=== PATIENT | female | born 1945 | race Caucasian/White ===

== ENCOUNTER 2021-11-23 10:33 | Outpatient (CLI) | payer OTHER ==
[2021-11-23 12:11] LABS: #Eosinphils 0.2 10x3/uL (0.0-0.5); #Monocytes 0.3 10x3/uL (0.0-1.1); #Neutrophils 2.9 10x3/uL (1.5-8.4); %Basophils 0.7 % (0.0-2.0); %Eosinophils 3.6 % (0.0-6.0); %Lymphocytes 42.9 % (18.0-47.0); %Monocytes 4.6 % (0.0-10.0); Hemoglobin 13.3 g/dL (12.0-15.5); Mean Corpuscular HGB CONC 32.9 g/dL (32.0-36.0); Mean Corpuscular Hemoglobin 29.1 pg (27.0-33.0); Mean Corpuscular Volume 88.4 fl (81.6-98.3); Mean Platelet Volume 10.5 fl (7.4-10.4); Platelet Count 335 10x3/uL (150-450); Red Blood Cell (RBC) Count 4.57 10x6/uL (3.90-5.03); White Blood Cell (WBC) Count 6.1 10x3/uL (3.5-10.5)
[2021-11-23 12:28] LABS: INR-International Normal Ratio 0.9; Prothrombin Time 10.2 sec (9.5-12.1)
[2021-11-23 12:36] LABS: Anion Gap 16 mmol/L (10-20); BUN (Urea Nitrogen) 15 mg/dL (9.8-20.1); Calc. Creatinine Clearance 0 mL/min (70-130); Calcium 9.9 mg/dL (7.8-10.44); Carbon Dioxide 27 mmol/L (23-31); Chloride 103 mmol/L (98-107); Glucose 88 mg/dL (83-110); Potassium 3.9 mmol/L (3.5-5.1); Sodium 142 mmol/L (136-145)
== END 2021-11-23 10:34 | disposition home or self-care (01) ==
LOC: LABBT 10:33
PROVIDERS: ATTEND Orthopaedic Surgery
DX: Z01.818 Encounter for other preprocedural examination (principal); M17.12 Unilateral primary osteoarthritis, left knee; Z20.822 Contact with and (suspected) exposure to COVID-19
CPT/HCPCS: 80048; 85025; 85610; 87081; 93005; U0003; U0005; 93010

== ENCOUNTER 2021-11-28 06:54 | Inpatient (IN) | payer MEDICARE, OTHER ==
[2021-11-28] MEDS ORDERED: Sodium Chloride 0.9% 100 ML ONE ×2 (07:28→09:31)
[2021-11-28] MEDS ORDERED: Tranexamic Acid 1,000 MG/10 ML VIAL ONE ×2 (07:28→11:51)
[2021-11-28] MEDS ORDERED: Vancomycin 1 GM/200 ML BAG ONE (07:29)
[2021-11-28] MEDS ORDERED: Fentanyl 100 MCG/2 ML VIAL ONE ×4 (08:05→13:06)
[2021-11-28] MEDS ORDERED: Midazolam HCl 2 mg/2 ml Vial ONE ×2 (08:05)
[2021-11-28] MEDS ORDERED: Fentanyl 100 MCG/2 ML VIAL IV PRN (09:09)
[2021-11-28] MEDS ORDERED: traMADol HCl 50 MG TAB PO PRN ×2 (09:15)
[2021-11-28] MEDS ORDERED: Zolpidem Tartrate 5 MG TAB PO PRN (09:15)
[2021-11-28] MEDS ORDERED: Ropivacaine 0.2% 550 ML 550 ML NERVE BLCK SCH (09:15)
[2021-11-28] MEDS ORDERED: Promethazine HCl 25 MG/ML VIAL IM PRN ×3 (09:15→11:23)
[2021-11-28] MEDS ORDERED: Ondansetron PF 4 MG/2 ML Vial IVP PRN (09:15)
[2021-11-28] MEDS ORDERED: fentaNYL Citrate/PF 100 MCG/2 ML SYRINGE ONE ×2 (09:28→10:13)
[2021-11-28] MEDS ORDERED: Dexmedetomidine 200 MCG/2 ML VIAL ONE (09:29)
[2021-11-28] MEDS ORDERED: CEFAZOLIN 2 GM VIAL ONE (09:31)
[2021-11-28] MEDS ORDERED: EPINEPHrine 1 MG/ML AMP ONE (10:26)
[2021-11-28] MEDS ORDERED: Bupivacaine 0.25% HCL 30 ML VIAL ONE (10:26)
[2021-11-28] MEDS ORDERED: Acetaminophen 325 MG TAB PO PRN (11:21)
[2021-11-28] MEDS ORDERED: diphenhydrAMINE 25 MG CAP PO PRN (11:21)
[2021-11-28] MEDS ORDERED: Ondansetron HCl/PF 4 MG/2 ML Vial IVP PRN (11:23)
[2021-11-28] MEDS ORDERED: Promethazine HCl 25 MG/ML VIAL IVPB PRN (11:23)
[2021-11-28] MEDS: Ketorolac Tromethamine 30 MG/ML VIAL IVP SCH ×3 (14:47→23:59)
[2021-11-28] MEDS: HYDROcodone/Acetaminophen 10/325 mg Tablet PO PRN ×2 (14:49→20:34)
[2021-11-28 15:01] VITALS: BMI 21.7
[2021-11-28] MEDS: CEFAZOLIN 2 GM in Sodium Chloride 0.9% 100 ML IVPB SCH (17:43)
[2021-11-28] MEDS ORDERED: Vancomycin 1 GM in Premix Bag 1 BAG IVPB SCH (20:00)
[2021-11-28] MEDS: Senokot S 8.6-50 MG TAB PO SCH (20:33)
[2021-11-28] MEDS: Ferrous Gluconate 324 MG TAB PO SCH (20:33)
[2021-11-28] MEDS: Aspirin 81 mg Enteric Coated Tablet PO SCH (20:34)
[2021-11-29] MEDS: CEFAZOLIN 2 GM in Sodium Chloride 0.9% 100 ML IVPB SCH (02:59)
[2021-11-29] MEDS: Ketorolac Tromethamine 30 MG/ML VIAL IVP SCH ×4 (06:04→23:49)
[2021-11-29 06:10] LABS: Hemoglobin 12.2 g/dL (12.0-16.0); Mean Corpuscular HGB CONC 31.7 g/dL (32.0-36.0); Mean Corpuscular Volume 94.4 fL (78.0-98.0); Mean Platelet Volume 8.4 fL (7.4-10.4); Platelet Count 249 thou/uL (130-400); RBC Distribution Width 12.8 % (11.5-14.5); Red Blood Cell (RBC) Count 4.07 mill/uL (4.20-5.40); White Blood Cell (WBC) Count 8.8 thou/uL (4.8-10.8)
[2021-11-29] MEDS: Aspirin 81 mg Enteric Coated Tablet PO SCH ×2 (08:52→21:22)
[2021-11-29] MEDS: Multivitamin W/ Minerals 1 TAB PO SCH (08:52)
[2021-11-29] MEDS: Ferrous Gluconate 324 MG TAB PO SCH ×2 (08:52→21:19)
[2021-11-29] MEDS: HYDROcodone/Acetaminophen 10/325 mg Tablet PO PRN ×2 (08:59→21:22)
[2021-11-29] MEDS: Atorvastatin Calcium 20 MG TAB PO SCH ×2 (09:27→21:20)
[2021-11-29] MEDS: Senokot S 8.6-50 MG TAB PO SCH ×2 (09:27→21:22)
[2021-11-29] MEDS: DULoxetine 60 MG CAP PO SCH ×2 (09:27→21:21)
[2021-11-29] MEDS: Oxybutynin 5 MG TAB PO SCH ×2 (09:27→21:22)
[2021-11-29] MEDS ORDERED: Non-Formulary Item 1 EACH (Famotidine [Famotidine] 40 MG Tablet) PO SCH (21:00)
[2021-11-29] MEDS: Famotidine 20 MG TAB PO SCH (21:20)
[2021-11-29] MEDS: NIFEdipine XL 30 MG TAB PO SCH (21:21)
[2021-11-30] MEDS: Ketorolac Tromethamine 30 MG/ML VIAL IVP SCH (05:12)
[2021-11-30] MEDS: Levothyroxine Sodium 75 MCG TAB PO SCH (05:13)
[2021-11-30 05:33] LABS: Hemoglobin 11.2 g/dL (12.0-16.0); Mean Corpuscular HGB CONC 32.8 g/dL (32.0-36.0); Mean Corpuscular Hemoglobin 30.7 pg (27.0-31.0); Mean Corpuscular Volume 93.7 fL (78.0-98.0); Mean Platelet Volume 8.8 fL (7.4-10.4); Platelet Count 218 thou/uL (130-400); RBC Distribution Width 12.8 % (11.5-14.5); Red Blood Cell (RBC) Count 3.65 mill/uL (4.20-5.40); White Blood Cell (WBC) Count 7.4 thou/uL (4.8-10.8)
[2021-11-30] MEDS: HYDROcodone/Acetaminophen 10/325 mg Tablet PO PRN ×2 (08:25→17:33)
[2021-11-30] MEDS: Oxybutynin 5 MG TAB PO SCH ×2 (08:27→20:05)
[2021-11-30] MEDS: DULoxetine 60 MG CAP PO SCH ×2 (08:27→20:05)
[2021-11-30] MEDS: Atorvastatin Calcium 20 MG TAB PO SCH ×2 (08:27→20:04)
[2021-11-30] MEDS: Aspirin 81 mg Enteric Coated Tablet PO SCH ×2 (08:27→20:04)
[2021-11-30] MEDS: Ferrous Gluconate 324 MG TAB PO SCH ×2 (08:27→20:04)
[2021-11-30] MEDS: Senokot S 8.6-50 MG TAB PO SCH ×2 (08:27→20:12)
[2021-11-30] MEDS: Multivitamin W/ Minerals 1 TAB PO SCH (08:27)
[2021-11-30] MEDS: Famotidine 20 MG TAB PO SCH (20:04)
[2021-11-30] MEDS: NIFEdipine XL 30 MG TAB PO SCH (20:05)
[2021-12-01] MEDS: HYDROcodone/Acetaminophen 10/325 mg Tablet PO PRN ×2 (01:33→10:27)
[2021-12-01] MEDS: Levothyroxine Sodium 75 MCG TAB PO SCH (05:30)
[2021-12-01 05:49] LABS: Hemoglobin 10.7 g/dL (12.0-16.0); Mean Corpuscular HGB CONC 32.6 g/dL (32.0-36.0); Mean Corpuscular Hemoglobin 30.4 pg (27.0-31.0); Mean Corpuscular Volume 93.2 fL (78.0-98.0); Mean Platelet Volume 8.7 fL (7.4-10.4); Platelet Count 227 thou/uL (130-400); RBC Distribution Width 12.5 % (11.5-14.5); White Blood Cell (WBC) Count 7.8 thou/uL (4.8-10.8)
[2021-12-01] MEDS: Aspirin 81 mg Enteric Coated Tablet PO SCH (10:25)
[2021-12-01] MEDS: Ferrous Gluconate 324 MG TAB PO SCH (10:25)
[2021-12-01] MEDS: Atorvastatin Calcium 20 MG TAB PO SCH (10:26)
[2021-12-01] MEDS: Multivitamin W/ Minerals 1 TAB PO SCH (10:26)
[2021-12-01] MEDS: DULoxetine 60 MG CAP PO SCH (10:26)
[2021-12-01] MEDS: Senokot S 8.6-50 MG TAB PO SCH (10:26)
[2021-12-01] MEDS: Oxybutynin 5 MG TAB PO SCH (10:26)
[2021-12-01 15:46] VITALS: BP 130/82; TEMP 98
== END 2021-12-01 16:10 | disposition home health service (06) | DRG 470 ==
LOC: SDC 06:54 → SURG B 14:44 → OBSVTOIN 11-30 16:08
PROVIDERS: ADMIT Orthopaedic Surgery; ATTEND Internal Medicine
PROC: 0SRD0J9 Replacement of Left Knee Joint with Synthetic Substitute, Cemented, Open Approach (ICD-10-PCS; principal; 2021-11-28)
DX: M17.12 Unilateral primary osteoarthritis, left knee (principal); I10 Essential (primary) hypertension; E78.5 Hyperlipidemia, unspecified; E03.9 Hypothyroidism, unspecified; N32.81 Overactive bladder; Z79.899 Other long term (current) drug therapy; Z79.890 Hormone replacement therapy; K21.9 Gastro-esophageal reflux disease without esophagitis; Z96.641 Presence of right artificial hip joint; Z96.651 Presence of right artificial knee joint; R09.02 Hypoxemia
CPT/HCPCS: 36415; 85027; A4306; C1713; C1776; J0171; J0690; J1885; J2250; J2795; J3010; J3370; J3490; S0020

== ENCOUNTER 2022-06-15 11:00 | Outpatient (CLI) | payer OTHER | END 2022-06-15 11:01 | disposition home or self-care (01) | LOC: ULT 11:00 | PROVIDERS: ATTEND Specialist | DX: R90.89 Other abnormal findings on diagnostic imaging of central nervous system (principal) | CPT/HCPCS: 76770 ==

== ENCOUNTER 2022-11-16 05:50 | Inpatient (IN) | payer OTHER ==
[2022-11-13 13:46] VITALS: BMI 21.7
[2022-11-16] MEDS ORDERED: Vancomycin 1 GM VIAL ONE (06:39)
[2022-11-16] MEDS ORDERED: Thrombin 5000 UNITS/5 ML VIAL ONE (06:39)
[2022-11-16] MEDS ORDERED: Bacitracin Zinc Ointment 30 gm TUBE ONE (07:00)
[2022-11-16] MEDS ORDERED: Famotidine/PF 20 mg/2ml Vial ONE (07:07)
[2022-11-16] MEDS ORDERED: Fentanyl 250 MCG/5 ML VIAL ONE (07:07)
[2022-11-16] MEDS ORDERED: Sodium Chloride 0.9% 100 ML ONE (07:09)
[2022-11-16] MEDS ORDERED: cefOXitin 2 GM VIAL ONE (07:09)
[2022-11-16] MEDS ORDERED: CEFAZOLIN 2 GM VIAL ONE (07:09)
[2022-11-16] MEDS ORDERED: Esmolol 100 MG/10 ML VIAL ONE (07:47)
[2022-11-16] MEDS ORDERED: Dexamethasone 20 MG/5 ML VIAL ONE (07:47)
[2022-11-16] MEDS ORDERED: Lidocaine 1% PF 5 ML VIAL ONE (07:47)
[2022-11-16] MEDS ORDERED: PROPOFOL 200 MG/20 ML VIAL ONE (07:47)
[2022-11-16] MEDS ORDERED: PHENYLEPHRINE-NS 100 MCG/ML 10 ML SYRINGE ONE (07:47)
[2022-11-16] MEDS ORDERED: Rocuronium Bromide 10 MG/ML (10ML VIAL) ONE (07:47)
[2022-11-16] MEDS ORDERED: Ondansetron PF 4 MG/2 ML Vial ONE (07:47)
[2022-11-16] MEDS ORDERED: Promethazine HCl 25 MG/ML VIAL IM PRN (09:21)
[2022-11-16] MEDS ORDERED: HYDROmorphone 2 MG/ML VIAL SLOW IVP PRN (09:21)
[2022-11-16] MEDS ORDERED: Morphine Sulfate 2 MG/ML SYRINGE SLOW IVP PRN (09:21)
[2022-11-16] MEDS ORDERED: PACU-Morphine 4MG/ML VIAL SLOW IVP PRN (09:21)
[2022-11-16] MEDS ORDERED: Ondansetron HCl/PF 4 MG/2 ML Vial IVP PRN (09:21)
[2022-11-16] MEDS ORDERED: SUGAMMADEX SODIUM 200 MG/2 ML VIAL ONE (09:32)
[2022-11-16] MEDS ORDERED: traMADol HCl 50 MG TAB PO PRN (10:05)
[2022-11-16] MEDS ORDERED: diphenhydrAMINE 25 MG CAP PO PRN (10:05)
[2022-11-16] MEDS ORDERED: Acetaminophen 325 MG TAB PO PRN (10:05)
[2022-11-16] MEDS ORDERED: Ondansetron PF 4 MG/2 ML Vial IVP PRN (10:05)
[2022-11-16] MEDS ORDERED: Morphine 2 MG/ML VIAL SLOW IVP PRN (10:05)
[2022-11-16] MEDS ORDERED: hydrALAZINE 20 MG/ML VIAL SLOW IVP PRN (10:11)
[2022-11-16] MEDS ORDERED: fentaNYL 50 mcg/mL 1 mL Vial ONE ×2 (10:53→11:21)
[2022-11-16] MEDS ORDERED: hydrALAZINE 20 MG/ML VIAL ONE (11:02)
[2022-11-16] MEDS ORDERED: HYDROmorphone 0.5 MG/0.5 ML SYRINGE ONE (11:39)
[2022-11-16] MEDS: HYDROcodone/Acetaminophen 10/325 mg Tablet PO PRN (13:33)
[2022-11-16] MEDS: tiZANidine HCl 4 MG TAB PO PRN (13:35)
[2022-11-16] MEDS: Sodium Chloride 0.9% 1,000 ML IV SCH (13:36)
[2022-11-16] MEDS: CEFAZOLIN 2 GM in Sodium Chloride 0.9% 100 ML IVPB SCH ×2 (14:13→23:27)
[2022-11-16] MEDS: NIFEdipine XL 30 MG TAB PO SCH (20:45)
[2022-11-16] MEDS ORDERED: Non-Formulary Item 1 EACH (Famotidine [Famotidine] 40 MG Tablet) PO SCH (21:00)
[2022-11-16] MEDS: Oxybutynin 5 MG TAB PO SCH (21:03)
[2022-11-16] MEDS: DULoxetine 60 MG CAP PO SCH (21:03)
[2022-11-16] MEDS: Atorvastatin Calcium 20 MG TAB PO SCH (21:03)
[2022-11-16] MEDS: Gabapentin 100 MG CAP PO PRN (21:06)
[2022-11-16] MEDS: Diazepam 5 MG TAB PO PRN (21:07)
[2022-11-17] MEDS: Sodium Chloride 0.9% 1,000 ML IV SCH ×2 (00:56→12:58)
[2022-11-17] MEDS: HYDROcodone/Acetaminophen 10/325 mg Tablet PO PRN ×3 (06:18→17:34)
[2022-11-17] MEDS: Levothyroxine Sodium 75 MCG TAB PO SCH (06:19)
[2022-11-17] MEDS: DULoxetine 60 MG CAP PO SCH ×2 (09:42→23:07)
[2022-11-17] MEDS: Gabapentin 100 MG CAP PO PRN ×2 (09:42→23:07)
[2022-11-17] MEDS: Oxybutynin 5 MG TAB PO SCH ×2 (09:42→23:08)
[2022-11-17] MEDS: Acetaminophen/Codeine 30-300mg Tablet PO PRN (09:45)
[2022-11-17] MEDS: tiZANidine HCl 4 MG TAB PO PRN (15:39)
[2022-11-17] MEDS: NIFEdipine XL 30 MG TAB PO SCH (22:50)
[2022-11-17] MEDS: Diazepam 5 MG TAB PO PRN (23:08)
[2022-11-17] MEDS: Atorvastatin Calcium 20 MG TAB PO SCH (23:11)
[2022-11-18] MEDS: Sodium Chloride 0.9% 1,000 ML IV SCH ×2 (04:52→15:54)
[2022-11-18] MEDS: Levothyroxine Sodium 75 MCG TAB PO SCH (06:21)
[2022-11-18] MEDS: HYDROcodone/Acetaminophen 10/325 mg Tablet PO PRN ×3 (06:21→21:10)
[2022-11-18] MEDS: Acetaminophen/Codeine 30-300mg Tablet PO PRN (08:24)
[2022-11-18] MEDS: Gabapentin 100 MG CAP PO PRN (08:25)
[2022-11-18] MEDS: Oxybutynin 5 MG TAB PO SCH ×2 (08:25→21:10)
[2022-11-18] MEDS: DULoxetine 60 MG CAP PO SCH ×2 (08:25→21:10)
[2022-11-18] MEDS: NIFEdipine XL 30 MG TAB PO SCH (21:10)
[2022-11-18] MEDS: Atorvastatin Calcium 20 MG TAB PO SCH (21:10)
[2022-11-19] MEDS: Sodium Chloride 0.9% 1,000 ML IV SCH ×2 (04:13→18:36)
[2022-11-19] MEDS: HYDROcodone/Acetaminophen 10/325 mg Tablet PO PRN ×3 (05:21→23:17)
[2022-11-19] MEDS: Levothyroxine Sodium 75 MCG TAB PO SCH (05:23)
[2022-11-19] MEDS: Oxybutynin 5 MG TAB PO SCH ×2 (08:41→20:29)
[2022-11-19] MEDS: DULoxetine 60 MG CAP PO SCH ×2 (08:41→20:29)
[2022-11-19] MEDS: tiZANidine HCl 4 MG TAB PO PRN ×2 (08:41→20:29)
[2022-11-19] MEDS: Acetaminophen/Codeine 30-300mg Tablet PO PRN ×2 (12:05→19:50)
[2022-11-19 13:51] LABS: #Eosinphils 0.2 thou/uL (0.0-0.7); #Monocytes 0.5 thou/uL (0.11-0.59); #Neutrophils 4.9 thou/uL (1.40-6.50); %Basophils 0.5 % (0.0-1.0); %Lymphocytes 29.8 % (21.0-51.0); %Monocytes 5.7 % (0.0-10.0); %Neutrophils 61.9 % (42.0-75.0); Hemoglobin 11.9 g/dL (12.0-16.0); Mean Corpuscular HGB CONC 33.1 g/dL (32.0-36.0); Mean Corpuscular Hemoglobin 29.9 pg (27.0-31.0); Mean Corpuscular Volume 90.2 fl (78.0-98.0); Mean Platelet Volume 10.3 fL (7.4-10.4); Platelet Count 278 10x3/uL (130-400); RBC Distribution Width 13.8 % (11.5-14.5); Red Blood Cell (RBC) Count 3.98 mill/uL (4.20-5.40); White Blood Cell (WBC) Count 7.9 10x3/uL (4.8-10.8)
[2022-11-19 14:25] LABS: Anion Gap 9 mmol/L (10-20); BUN (Urea Nitrogen) 12 mg/dL (9.8-20.1); Calc. Creatinine Clearance 77 mL/min (70-130); Calcium 9.2 mg/dL (7.8-10.44); Carbon Dioxide 28 mmol/L (23-31); Chloride 99 mmol/L (98-107); Estimated GFR 93; Glucose 100 mg/dL (83-110); Potassium 3.3 mmol/L (3.5-5.1); Sodium 133 mmol/L (136-145)
[2022-11-19] MEDS: NIFEdipine XL 30 MG TAB PO SCH (20:29)
[2022-11-19] MEDS: Atorvastatin Calcium 20 MG TAB PO SCH (20:31)
[2022-11-20] MEDS: Acetaminophen/Codeine 30-300mg Tablet PO PRN (03:54)
[2022-11-20] MEDS: Levothyroxine Sodium 75 MCG TAB PO SCH (05:28)
[2022-11-20] MEDS: Diazepam 5 MG TAB PO PRN (05:28)
[2022-11-20] MEDS ORDERED: Dexamethasone 4 mg/ml Vial SLOW IVP SCH (08:00)
[2022-11-20] MEDS: Oxybutynin 5 MG TAB PO SCH ×2 (08:59→21:26)
[2022-11-20] MEDS: Ketorolac Tromethamine 30 MG/ML VIAL IVP SCH ×3 (08:59→21:26)
[2022-11-20] MEDS: DULoxetine 60 MG CAP PO SCH ×2 (08:59→21:25)
[2022-11-20] MEDS: Sodium Chloride 0.9% 1,000 ML IV SCH ×2 (09:03→21:35)
[2022-11-20] MEDS: HYDROcodone/Acetaminophen 10/325 mg Tablet PO PRN (12:41)
[2022-11-20] MEDS: Dexamethasone 4 MG TAB PO SCH ×2 (17:17→21:28)
[2022-11-20] MEDS: Atorvastatin Calcium 20 MG TAB PO SCH (21:25)
[2022-11-20] MEDS: NIFEdipine XL 30 MG TAB PO SCH (21:25)
[2022-11-20] MEDS: tiZANidine HCl 4 MG TAB PO PRN (21:26)
[2022-11-21] MEDS: Dexamethasone 4 MG TAB PO SCH ×2 (04:04→08:46)
[2022-11-21] MEDS: HYDROcodone/Acetaminophen 10/325 mg Tablet PO PRN (04:04)
[2022-11-21] MEDS: tiZANidine HCl 4 MG TAB PO PRN (05:32)
[2022-11-21] MEDS: Levothyroxine Sodium 75 MCG TAB PO SCH (05:32)
[2022-11-21] MEDS: DULoxetine 60 MG CAP PO SCH (08:46)
[2022-11-21] MEDS: Oxybutynin 5 MG TAB PO SCH (08:46)
[2022-11-21] MEDS: Sodium Chloride 0.9% 1,000 ML IV SCH (11:46)
[2022-11-21 11:54] VITALS: BP 121/80; TEMP 98.2
[2022-11-21] MEDS ORDERED: Dexamethasone 1 MG TAB PO SCH (16:00)
[2022-11-22] MEDS ORDERED: Dexamethasone 1 MG TAB PO SCH (16:00)
[2022-11-23] MEDS ORDERED: Dexamethasone 1 MG TAB PO SCH (16:00)
== END 2022-11-21 15:50 | disposition home health service (06) | DRG 519 ==
LOC: SDC 05:50 → SURG A 10:05 → OBSVTOIN 11-17 11:19
PROVIDERS: ADMIT Surgery; ATTEND Surgery
PROC: 00NW0ZZ Release Cervical Spinal Cord, Open Approach (ICD-10-PCS; principal; 2022-11-16)
PROC: 01N10ZZ Release Cervical Nerve, Open Approach (ICD-10-PCS; 2022-11-16)
DX: M48.02 Spinal stenosis, cervical region (principal); G99.2 Myelopathy in diseases classified elsewhere; M48.061 Spinal stenosis, lumbar region without neurogenic claudication; R32 Unspecified urinary incontinence
CPT/HCPCS: 36416; 80048; 85025; 96374; 96375; 96376; C1713; G0378; J0360; J0694; J1100; J1170; J1885; J2272; J2405; J2704; J3010; J3370; J3490; J7050; J8540; S0028

== ENCOUNTER 2023-02-21 08:14 | Day surgery (SDC) | payer OTHER ==
[2023-02-21] MEDS ORDERED: Acetaminophen 500 MG TAB ONE (11:23)
[2023-02-21 13:56] LABS: CSF Source CSF; Clarity Hazy (Clear); Tube # 4
[2023-02-21 14:22] LABS: CSF, Glucose 54 mg/dl (40-70); CSF, Protein 58 mg/dL (15-40)
[2023-02-21 14:56] LABS: Cell Count Non Hematic 5 %; Eosinophils 2 %; Lymphocytes 10 %; Segmented Neutrophils 82 %
== END 2023-02-21 12:45 | disposition home or self-care (01) ==
LOC: RAD 08:14
PROVIDERS: ATTEND Surgery
PROC: 00JU0ZZ Inspection of Spinal Canal, Open Approach (ICD-10-PCS; principal; 2023-02-21)
DX: G91.2 (Idiopathic) normal pressure hydrocephalus (principal)
CPT/HCPCS: 62270; 82945; 84157; 85060; 87070; 87205; 89051

== ENCOUNTER 2023-10-29 08:59 | Outpatient (CLI) | payer OTHER ==
[2023-10-29 10:08] LABS: Hematocrit 42.7 % (34.9-44.5); Hemoglobin 14.1 g/dL (12.0-15.5); Mean Corpuscular Hemoglobin 29.1 pg (27.0-33.0); Mean Corpuscular Volume 88.2 fl (81.6-98.3); Platelet Count 256 10x3/uL (150-450); RBC Distribution Width 14.9 % (11.5-14.5); Red Blood Cell (RBC) Count 4.84 10x6/uL (3.90-5.03); White Blood Cell (WBC) Count 8.5 10x3/uL (3.5-10.5)
[2023-10-29 10:40] LABS: PTT 24.8 sec (22.0-33.0); Prothrombin Time 10.7 sec (9.5-12.1)
[2023-10-29 10:50] LABS: Anion Gap 17 mmol/L (10-20); BUN (Urea Nitrogen) 17 mg/dL (9.8-20.1); Calc. Creatinine Clearance 0 mL/min (70-130); Calcium 10.1 mg/dL (7.8-10.44); Carbon Dioxide 22 mmol/L (23-31); Chloride 106 mmol/L (98-107); Estimated GFR 77; Glucose 116 mg/dL (83-110); Potassium 4.2 mmol/L (3.5-5.1); Sodium 141 mmol/L (136-145)
== END 2023-10-29 09:00 | disposition home or self-care (01) ==
LOC: LABBT 08:59
PROVIDERS: ATTEND Surgery
DX: Z01.818 Encounter for other preprocedural examination (principal); M54.16 Radiculopathy, lumbar region; M48.061 Spinal stenosis, lumbar region without neurogenic claudication
CPT/HCPCS: 80048; 85027; 85610; 85730; 93005; 93010

== ENCOUNTER 2023-10-31 05:14 | Inpatient (IN) | payer OTHER ==
[2023-10-31] MEDS ORDERED: fentaNYL PF 100 MCG/2 ML SYRINGE ONE ×2 (06:58→10:52)
[2023-10-31] MEDS ORDERED: Lidocaine 1% PF 5 ML VIAL ONE (06:58)
[2023-10-31] MEDS ORDERED: Rocuronium Bromide 10 MG/ML (10ML VIAL) ONE (06:58)
[2023-10-31] MEDS ORDERED: PROPOFOL 20 ML ONE (06:58)
[2023-10-31] MEDS ORDERED: Vancomycin 1 GM VIAL ONE (07:04)
[2023-10-31] MEDS ORDERED: Thrombin 5000 UNITS/5 ML VIAL ONE (07:05)
[2023-10-31] MEDS ORDERED: fentaNYL 50 mcg/mL 1 mL Vial ONE ×3 (07:15→11:38)
[2023-10-31] MEDS ORDERED: CEFAZOLIN 2 GM VIAL ONE (07:32)
[2023-10-31] MEDS ORDERED: Sodium Chloride 0.9% 100 ML ONE (07:33)
[2023-10-31] MEDS ORDERED: ePHEDrine Sulfate 50 MG/10 ML VIAL ONE (08:45)
[2023-10-31] MEDS ORDERED: PHENYLEPHRINE-NS 100 MCG/ML 10 ML SYRINGE ONE (09:20)
[2023-10-31] MEDS ORDERED: Ondansetron HCl/PF 4 MG/2 ML Vial IVP PRN (09:47)
[2023-10-31] MEDS ORDERED: Promethazine HCl 25 MG/ML VIAL IM PRN (09:47)
[2023-10-31] MEDS ORDERED: Morphine Sulfate 2 MG/ML SYRINGE SLOW IVP PRN (09:47)
[2023-10-31] MEDS ORDERED: HYDROmorphone 2 MG/ML VIAL SLOW IVP PRN (09:47)
[2023-10-31] MEDS ORDERED: PACU-Morphine 4MG/ML VIAL SLOW IVP PRN (09:47)
[2023-10-31] MEDS ORDERED: SUGAMMADEX SODIUM 200 MG/2 ML VIAL ONE (09:58)
[2023-10-31] MEDS ORDERED: Ondansetron PF 4 MG/2 ML Vial ONE ×2 (10:00)
[2023-10-31] MEDS ORDERED: diphenhydrAMINE 25 MG CAP PO PRN (10:31)
[2023-10-31] MEDS ORDERED: Acetaminophen 325 MG TAB PO PRN (10:31)
[2023-10-31] MEDS ORDERED: Milk Of Magnesia 30 ML UDCUP PO PRN (10:31)
[2023-10-31] MEDS ORDERED: Morphine 2 MG/ML VIAL SLOW IVP PRN (10:31)
[2023-10-31] MEDS ORDERED: hydrALAZINE 20 MG/ML VIAL SLOW IVP PRN (10:41)
[2023-10-31] MEDS ORDERED: HYDROmorphone 0.5 MG/0.5 ML SYRINGE ONE ×2 (11:03→11:18)
[2023-10-31] MEDS ORDERED: Promethazine HCl 25 MG/ML VIAL ONE (11:10)
[2023-10-31] MEDS ORDERED: PROTEASE PO SCH (12:00)
[2023-10-31] MEDS ORDERED: LIPASE PO SCH (12:00)
[2023-10-31] MEDS ORDERED: AMYLASE PO SCH (12:00)
[2023-10-31 14:56] VITALS: BMI 40.7
[2023-10-31] MEDS: CEFAZOLIN 2 GM in Sodium Chloride 0.9% 100 ML IVPB SCH (15:51)
[2023-10-31] MEDS: HYDROcodone/Acetaminophen 5/325 mg Tablet PO PRN (15:54)
[2023-10-31] MEDS: tiZANidine HCl 4 MG TAB PO PRN (15:55)
[2023-10-31] MEDS: Gabapentin 100 MG CAP PO SCH (18:53)
[2023-10-31] MEDS: Sodium Chloride 0.9% 1,000 ML IV SCH (19:29)
[2023-10-31] MEDS: NIFEdipine XL 30 MG ER.TAB PO SCH (20:32)
[2023-10-31] MEDS: traMADol HCl 50 MG TAB PO PRN (20:33)
[2023-10-31] MEDS: Oxybutynin 5 MG TAB PO SCH (20:34)
[2023-10-31] MEDS: Ondansetron PF 4 MG/2 ML Vial IVP PRN (20:34)
[2023-11-01 00:49] LABS: Bacteria/HPF None Seen HPF (None Seen); Bilirubin Negative (Negative); Blood, Urine Negative (Negative); CAUTI Indications for Culture Dysuria,urgency,freq; Clarity Clear (Clear); Glucose, Urine (Dipstick) Normal (Negative); Ketone, Urine Negative (Negative); Leukocyte 250 Leu/uL (Negative); Nitrite Negative (Negative); Protein, Urine (Dipstick) Negative (Neg-Trace); RBC/HPF 0-3 HPF (0-3); Specific Gravity, Urine 1.013 (1.002-1.036); Squamous Epithelial None Seen HPF (0-3); Urobilinogen Normal mg/dL (Less than 2); WBC/HPF Greater than 50 HPF (0-3); pH, Urine 6.5 (5.0-9.0)
[2023-11-01 00:52] LABS: Urine Culture Reflex Yes Yes
[2023-11-01] MEDS: Levothyroxine Sodium 75 MCG TAB PO SCH (05:16)
[2023-11-01 05:24] LABS: #Basophils Less than 0.03 10x3/uL (0.0-0.2); %Basophils 0.2 % (0.0-1.0); %Eosinophils 1.5 % (0.0-10.0); %Lymphocytes 36.3 % (21.0-51.0); %Monocytes 5.3 % (0.0-10.0); %Neutrophils 56.6 % (42.0-75.0); Hematocrit 39.6 % (36.0-47.0); Hemoglobin 12.7 g/dL (12.0-16.0); Mean Corpuscular HGB CONC 32.1 g/dL (32.0-36.0); Mean Corpuscular Hemoglobin 29.1 pg (27.0-31.0); Mean Corpuscular Volume 90.8 fL (78.0-98.0); Mean Platelet Volume 11.2 fL (7.4-10.4); Platelet Count 227 10x3/uL (130-400); RBC Distribution Width 14.9 % (11.5-14.5); Red Blood Cell (RBC) Count 4.36 mill/uL (4.20-5.40)
[2023-11-01 05:41] LABS: Anion Gap 13 mmol/L (10-20); BUN (Urea Nitrogen) 8 mg/dL (9.8-20.1); Calc. Creatinine Clearance 118 mL/min (70-130); Calcium 9.1 mg/dL (7.8-10.44); Carbon Dioxide 25 mmol/L (23-31); Chloride 108 mmol/L (98-107); Estimated GFR 89; Glucose 87 mg/dL (83-110); Potassium 3.5 mmol/L (3.5-5.1); Sodium 142 mmol/L (136-145)
[2023-11-01] MEDS: Atorvastatin Calcium 20 MG TAB PO SCH (08:50)
[2023-11-01] MEDS: Famotidine 20 MG TAB PO SCH (08:50)
[2023-11-01] MEDS: Pantoprazole DR 40 MG TAB PO SCH (08:51)
[2023-11-01] MEDS: Acetaminophen/Codeine 30-300mg Tablet PO PRN (08:53)
[2023-11-01] MEDS: Lidocaine 5% Patch TOP SCH (16:40)
[2023-11-01 23:40] VITALS: TEMP 97.9
[2023-11-02] MEDS: Lidocaine 4% Patch TD SCH (08:38)
[2023-11-02 11:36] VITALS: BP 111/68
[2023-11-02] MEDS ORDERED: Transdermal Patch Removal TOP SCH (21:00)
== END 2023-11-02 15:15 | disposition home or self-care (01) | DRG 520 ==
LOC: SDC 05:14 → SURG A 12:02 → OBSVTOIN 11-01 11:57
PROVIDERS: ADMIT Surgery; ATTEND Surgery
PROC: 01NB0ZZ Release Lumbar Nerve, Open Approach (ICD-10-PCS; principal; 2023-10-31)
PROC: 00NY0ZZ Release Lumbar Spinal Cord, Open Approach (ICD-10-PCS; 2023-10-31)
PROC: 0SB20ZZ Excision of Lumbar Vertebral Disc, Open Approach (ICD-10-PCS; 2023-10-31)
DX: M48.062 Spinal stenosis, lumbar region with neurogenic claudication (principal); I10 Essential (primary) hypertension; E78.5 Hyperlipidemia, unspecified; E03.9 Hypothyroidism, unspecified; M19.90 Unspecified osteoarthritis, unspecified site; Z96.641 Presence of right artificial hip joint; Z96.652 Presence of left artificial knee joint; M54.16 Radiculopathy, lumbar region
CPT/HCPCS: 36415; 80048; 81001; 85025; 87086; J1170; J2405; J2550; J2704; J3010; J3370; J3490

== ENCOUNTER 2024-07-09 10:53 | Outpatient (CLI) | payer OTHER ==
[2024-07-09 11:59] LABS: #Basophils 0.05 10x3/uL (0.0-0.2); %Basophils 0.7 % (0.0-1.0); %Eosinophils 2.3 % (0.0-10.0); %Lymphocytes 34.4 % (21.0-51.0); %Monocytes 5.1 % (0.0-10.0); %Neutrophils 57.2 % (42.0-75.0); Hematocrit 43.6 % (36.0-47.0); Hemoglobin 14.1 g/dL (12.0-16.0); Mean Corpuscular HGB CONC 32.3 g/dL (32.0-36.0); Mean Corpuscular Hemoglobin 29.4 pg (27.0-31.0); Mean Platelet Volume 10.6 fL (7.4-10.4); Platelet Count 271 10x3/uL (130-400); RBC Distribution Width 13.8 % (11.5-14.5); Red Blood Cell (RBC) Count 4.79 mill/uL (4.20-5.40)
[2024-07-09 12:12] LABS: Prothrombin Time 13.1 sec (12.0-14.7)
[2024-07-09 12:13] LABS: Bacteria/HPF None Seen HPF (None Seen); Bilirubin Negative (Negative); Blood, Urine 1+ (Negative); Clarity Clear (Clear); Glucose, Urine (Dipstick) Normal (Negative); Ketone, Urine Negative (Negative); Leukocyte 500 Leu/uL (Negative); Mucous/LPF Rare LPF (<2+); Nitrite Negative (Negative); Protein, Urine (Dipstick) Negative (Neg-Trace); RBC/HPF 0-3 HPF (0-3); Specific Gravity, Urine 1.012 (1.002-1.036); Squamous Epithelial 0-3 HPF (0-3); Urobilinogen Normal mg/dL (Less than 2)
[2024-07-09 12:22] LABS: Anion Gap 15 mmol/L (10-20); BUN (Urea Nitrogen) 16 mg/dL (9.8-20.1); Calc. Creatinine Clearance 0 mL/min (70-130); Calcium 9.7 mg/dL (7.8-10.44); Carbon Dioxide 26 mmol/L (23-31); Chloride 103 mmol/L (98-107); Estimated GFR 84; Glucose 86 mg/dL (83-110); Potassium 3.7 mmol/L (3.5-5.1); Sodium 140 mmol/L (136-145)
== END 2024-07-09 10:54 | disposition home or self-care (01) ==
LOC: LABBT 10:53
PROVIDERS: ATTEND Orthopaedic Surgery
DX: Z01.818 Encounter for other preprocedural examination (principal); M16.12 Unilateral primary osteoarthritis, left hip
CPT/HCPCS: 80048; 81001; 85025; 85610; 87081; 93005; 93010